=== PATIENT | female | born 1980 | race American Indian/Alaskan Native ===

== ENCOUNTER 2020-01-05 21:33 | Emergency (ER) | payer MEDICAID ==
--- NOTE | 2020-01-05 22:30 | Emergency Department Report ---
HPI - General Chief Complaint: Overdose Time Seen by Provider: 01/05/20 21:35 - HPI HPI: Room 2 The patient is a 39-year-old female present with a chief complaint of unresponsiveness. Per EMS family noted the patient was unresponsive she was found slumped over in her chair. EMS placed a nasal trumpet and administered Narcan. Just prior to arrival the patient began to awaken and answer questions. Family at bedside provides further history stating that the patient took some Xanax that she had bought off the street this morning at 07: 00. Patient then went to her physician's office for routine appointment and when family was driving her back home she appeared lethargic and was slumped over in the backseat with decreased responsiveness. Upon arriving home EMS was called and the patient improved and refused transport. The patient then acknowledges she took some more Xanax and Percocet at approximately 15: 00 this afternoon. The patient's daughter felt the patient unresponsive slumped over in her chair and EMS was called and eventually transported the patient to the ED ED Past Medical Hx - Past Medical History Previous Medical History?: Yes Hx GERD: Yes Hx Psychiatric Treatment: Yes (anxiety) Additional medical history: HYPOTHYROID, Abuse of hydrocodone - Surgical History Past Surgical History?: Yes Hx Cholecystectomy: Yes Additional Surgical History: 2002 2004 - Family History Family history: no significant - Social History Smoking Status: Current Every Day Smoker - Medications Home Medications: Home Medications Medication Instructions Recorded Confirmed Last Taken Type Levothyroxine [Synthroid] 100 mcg PO QDAY 11/16/14 06/27/15 11/26/14 07:00 History 100 mcg Cyclobenzaprine [Flexeril 10 MG 10 mg PO TID PRN #30 tablet 06/28/15 Unknown Rx TAB] HYDROcodone/APAP 5-325 [[place] 1 each PO Q6HR PRN #20 tablet 06/28/15 Unknown Rx 5-325 mg TAB] Ibuprofen [Motrin 600 MG tab] 600 mg PO Q8H PRN #50 tablet 06/28/15 Unknown Rx ED Review of Systems ROS: Stated complaint: CARDIAC ARREST Other details as noted in HPI Constitutional: no symptoms reported Eyes: denies: eye pain ENT: denies: throat pain Respiratory: no symptoms reported Cardiovascular: denies: chest pain Endocrine: no symptoms reported Gastrointestinal: denies: abdominal pain Genitourinary: denies: dysuria Musculoskeletal: denies: back pain Neurological: denies: headache Physical Exam - Physical Exam Vital Signs: Vital Signs 01/05/20 01/05/20 01/05/20 21:45 21:51 22:12 Temperature 97.5 F L Pulse Rate 99 H Respiratory 15 20 Rate Blood Pressure 130/72 O2 Sat by Pulse 98 Oximetry Physical Exam: GEN: WD WN obese female lying on stretcher in NAD. Patient keeps screaming out "I'm cold!" HEENT: NCAT, EOMI NECK: trachea midline PULM: CTA bilat. No resp distress noted CV: rrr no m/r/g ABD: s/nt/nd SKIN: no diaphoresis NEURO: GCS 15 MUSCULOSKELETAL: No evidence of acute injury ED Course Vital Signs 01/05/20 01/05/20 01/05/20 21:45 21:51 22:12 Temperature 97.5 F L Pulse Rate 99 H Respiratory 15 20 Rate Blood Pressure 130/72 O2 Sat by Pulse 98 Oximetry - Reevaluation(s) Reevaluation #1: 01/06/20 00:08 Patient remains alert and oriented and asymptomatic. Patient and family updated on work-up ED Medical Decision Making - Lab Data Result diagrams: 01/05/20 23:07 01/05/20 23:07 Laboratory Tests 01/05/20 01/05/20 01/05/20 22:12 23:07 23:07 WBC 9.5 RBC 4.44 Hgb 10.5 Hct 35.5 MCV 80 MCH 24 L MCHC 30 RDW 19.7 H Plt Count 230 Lymph % (Auto) 12.3 L [place] % (Auto) 6.6 Eos % (Auto) 0.4 Baso % (Auto) 0.4 Lymph # 1.2 [place] # 0.6 Eos # 0.0 Baso # 0.0 Seg Neutrophils % 80.3 H Seg Neutrophils # 7.7 PT 14.0 INR 1.07 APTT 25.8 Sodium Potassium Chloride Carbon Dioxide Anion Gap BUN Creatinine Estimated GFR BUN/Creatinine Ratio Glucose Calcium Total Bilirubin AST ALT Alkaline Phosphatase Ammonia Total Creatine Kinase CK-MB (CK-2) CK-MB (CK-2) Rel Index Troponin T Total Protein Albumin Albumin/Globulin Ratio TSH Free T4 HCG, Qual Urine Opiates Screen Presumptive negative Urine Methadone Screen Presumptive negative Ur Barbiturates Screen Presumptive negative Ur Phencyclidine Scrn Presumptive negative Ur Amphetamines Screen Presumptive negative U Benzodiazepines Scrn Presumptive positive Urine Cocaine Screen Presumptive negative U Marijuana (THC) Screen Presumptive negative Drugs of Abuse Note Disclamer Plasma/Serum Alcohol 01/05/20 01/05/20 01/05/20 23:07 23:07 23:07 WBC RBC Hgb Hct MCV MCH MCHC RDW Plt Count Lymph % (Auto) [place] % (Auto) Eos % (Auto) Baso % (Auto) Lymph # [place] # Eos # Baso # Seg Neutrophils % Seg Neutrophils # PT INR APTT Sodium 139 Potassium 4.0 Chloride 99.4 Carbon Dioxide 28 Anion Gap 16 BUN 8 Creatinine 0.9 Estimated GFR > 60 BUN/Creatinine Ratio 9 Glucose 87 Calcium 8.6 Total Bilirubin 0.20 AST 19 ALT 7 Alkaline Phosphatase 86 Ammonia 25.0 Total Creatine Kinase 172 H CK-MB (CK-2) 2.7 CK-MB (CK-2) Rel Index 1.5 Troponin T < 0.010 Total Protein 8.1 Albumin 3.8 L Albumin/Globulin Ratio 0.9 TSH Free T4 HCG, Qual Urine Opiates Screen Urine Methadone Screen Ur Barbiturates Screen Ur Phencyclidine Scrn Ur Amphetamines Screen U Benzodiazepines Scrn Urine Cocaine Screen U Marijuana (THC) Screen Drugs of Abuse Note Plasma/Serum Alcohol < 0.01 01/05/20 01/05/20 23:07 23:07 WBC RBC Hgb Hct MCV MCH MCHC RDW Plt Count Lymph % (Auto) [place] % (Auto) Eos % (Auto) Baso % (Auto) Lymph # [place] # Eos # Baso # Seg Neutrophils % Seg Neutrophils # PT INR APTT Sodium Potassium Chloride Carbon Dioxide Anion Gap BUN Creatinine Estimated GFR BUN/Creatinine Ratio Glucose Calcium Total Bilirubin AST ALT Alkaline Phosphatase Ammonia Total Creatine Kinase CK-MB (CK-2) CK-MB (CK-2) Rel Index Troponin T Total Protein Albumin Albumin/Globulin Ratio TSH 1.830 Free T4 1.31 HCG, Qual Negative Urine Opiates Screen Urine Methadone Screen Ur Barbiturates Screen Ur Phencyclidine Scrn Ur Amphetamines Screen U Benzodiazepines Scrn Urine Cocaine Screen U Marijuana (THC) Screen Drugs of Abuse Note Plasma/Serum Alcohol - EKG Data -: EKG Interpreted by [place] EKG shows normal: sinus rhythm Rate: normal - EKG Data When compared to previous EKG there are: previous EKG unavailable Interpretation: other (No ischemic changes seen) - Radiology Data Radiology results: report reviewed (CT head), image reviewed (CT head) Findings [facility] [address] [place] [id number] Cat Scan Report Signed Patient: MIREYA FIELD MR# : [id number] : 1980 Acct:[id number] Age/Sex: 39 / F ADM Date: 01/05/20 Loc: ED Attending Dr: Ordering Physician: LIZZY NORIEGA MD Date of Service: 01/05/20 Procedure(s): CT head/brain wo con Accession Number(s): [id number] cc: LIZZY NORIEGA MD CT HEAD WITHOUT CONTRAST INDICATION: Episode of unresponsiveness TECHNIQUE: Axial slices were obtained through the head. Coronal and sagittal reformatted images were obtained. COMPARISON: None available. FINDINGS: There is no in tracranial hemorrhage or extra-axial fluid collection. Ventricles, basilar cisterns, and sulci appear within normal limits for age. There is no mass lesion or midline shift. No acute territorial infarct is identified. Bone windows demonstrate no acute osseous abnormality. Paranasal sinuses and mastoid air cells appear clear. TECHNIQUE: All CT scans at this facility use dose modulation, iterative reconstruction, automated exposure control, weight based dosing, when appropriate, to reduce radiation dose to as low as reasonably achievable. IMPRESSION: 1. No acute intracranial abnormality. Signer Name: Andrea Shaw MD Signed: 01/05/2020 11:10 PM Workstation Name: [id number] Transcribed By: SS Dictated By: Andrea Shaw MD Electronically Authenticated By: Andrea Shaw MD Signed Date/Time: 01/05/202309 DD/ 07 TD/TT: - Differential Diagnosis Opiate overdose, benzodiazepine overdose, ICH, symptomatic anemia, electrol Critical care attestation.: If time is entered above; I have spent that time in minutes in the direct care of this critically ill patient, excluding procedure time. ED Disposition Clinical Impression: Benzodiazepine overdose Disposition: DC-01 TO HOME OR SELFCARE Is pt being admited?: No Does the pt Need Aspirin: No Condition: Stable Instructions: Benzodiazepine Abuse (ED), Narcotic Abuse (ED) Referrals: [facility] [Outside] - [facility] (Should you desire assistance with your opiate and benzodiazepine overuse please follow-up with [facility].) Time of Disposition: 00:09
[2020-01-05 22:31] LABS: Amphetamine Screen,Urine PRESUMPTIVE NEGATIVE; Cannabinoid Screen,Urine PRESUMPTIVE NEGATIVE; Cocaine Screen,Urine PRESUMPTIVE NEGATIVE; Methadone Screen,Urine PRESUMPTIVE NEGATIVE; Opiate Screen,Urine PRESUMPTIVE NEGATIVE
[2020-01-05 22:50] LABS: Benzodiazepines Screen,Urine PRESUMPTIVE POSITIVE
[2020-01-05 23:11] VITALS: BP 108/51
--- NOTE | 2020-01-05 23:15 | Cat Scan Report ---
CT HEAD WITHOUT CONTRAST INDICATION: Episode of unresponsiveness TECHNIQUE: Axial slices were obtained through the head. Coronal and sagittal reformatted images were obtained. COMPARISON: None available. FINDINGS: There is no intracranial hemorrhage or extra-axial fluid collection. Ventricles, basilar cisterns, an d sulci appear within normal limits for age. There is no mass lesion or midline shift. No acute radha torial infarct is identified. Bone windows demonstrate no acute osseous abnormality. Paranasal sinuses and mastoid air cells appear clear. TECHNIQUE: All CT scans at this facility use dose modulation, iterative reconstruction, automated ex posure control, weight based dosing, when appropriate, to reduce radiation dose to as low as reasonab ly achievable. IMPRESSION: 1. No acute intracranial abnormality. Signer Name: Andrea Shaw MD Signed: 01/05/2020 11:10 PM Workstation Name: [id number]
[2020-01-05 23:22] LABS: Basophils % (Auto) 0.4 % (0.0-1.8); Eosinophils % (Auto) 0.4 % (0.0-4.3); Lymphocytes # (Auto) 1.2 K/mm3 (1.2-5.4); Lymphocytes % (Auto) 12.3 % (13.4-35.0); Mean Corpuscular HGB Conc 30 % (30-34); Mean Corpuscular Volume 80 fl (79-97); Monocytes # (Auto) 0.6 K/mm3 (0.0-0.8); Monocytes % (Auto) 6.6 % (0.0-7.3); Platelet Count 230 K/mm3 (140-440); Red Blood Count 4.44 M/mm3 (3.65-5.03); Red Cell Distribution Width 19.7 % (13.2-15.2)
[2020-01-05 23:29] LABS: Hematocrit 35.5 % (30.3-42.9); Hemoglobin 10.5 gm/dl (10.1-14.3)
[2020-01-05 23:33] LABS: INR 1.07 (0.87-1.13)
[2020-01-05 23:34] LABS: Partial Thromboplastin Time 25.8 Sec. (24.2-36.6)
[2020-01-05 23:36] LABS: Creatine Kinase MB 2.7 ng/mL (0.0-4.0)
[2020-01-05 23:38] LABS: Alanine Aminotransferase 7 units/L (7-56); Albumin 3.8 g/dL (3.9-5); BUN/Creatinine Ratio 9; Blood Urea Nitrogen 8 mg/dL (7-17); Calcium 8.6 mg/dL (8.4-10.2); Hemolysis Index 25
[2020-01-05 23:55] LABS: Free T4 (Free Thyroxine) 1.31 ng/dL (0.76-1.46)
== END 2020-01-06 00:30 | disposition home or self-care (01) ==
LOC: ED 21:33
DX: T42.4X1A Poisoning by benzodiazepines, accidental (unintentional), initial encounter (principal); Y92.89 Other specified places as the place of occurrence of the external cause; K21.9 Gastro-esophageal reflux disease without esophagitis; F41.9 Anxiety disorder, unspecified; E03.9 Hypothyroidism, unspecified; F17.200 Nicotine dependence, unspecified, uncomplicated; Z90.49 Acquired absence of other specified parts of digestive tract; Z98.890 Other specified postprocedural states; Z79.1 Long term (current) use of non-steroidal anti-inflammatories (NSAID); Z79.899 Other long term (current) drug therapy
CPT/HCPCS: 36415; 70450; 80053; 80307; 80320; 82140; 82550; 82553; 84439; 84443; 84484; 84703; 85025; 85610; 85730; 93005; 93010; G0480

== ENCOUNTER 2020-01-06 14:59 | Inpatient (IN) | payer MEDICAID ==
--- NOTE | 2020-01-06 18:23 | XRay Report ---
CHEST 1 VIEW INDICATION / CLINICAL INFORMATION: resp depression. COMPARISON: 09/30/2018 FINDINGS: SUPPORT DEVICES: None. HEART / MEDIASTINUM: Cardiac silhouette size remains mildly enlarged. LUNGS / PLEURA: There is mild interstitial pulmonary edema. No significant pleural effusion. No pneum othorax. ADDITIONAL FINDINGS: No significant additional findings. IMPRESSION: 1. Mild interstitial pulmonary edema. Signer Name: Corrina Wilhelm MD Signed: 01/06/2020 6:18 PM Workstation Name: [id number]
[2020-01-06 18:30] LABS: Calcium 8.4 mg/dL (8.4-10.2)
--- NOTE | 2020-01-06 18:46 | Cat Scan Report ---
CT head/brain wo con INDICATION: Altered mental status. TECHNIQUE: Routine CT head without contrast. All CT scans at this location are performed using CT dos e reduction for ALARA by means of automated exposure control. COMPARISON: None. FINDINGS: BRAIN / INTRACRANIAL CONTENTS: No acute hemorrhage, mass effect, midline shift, or hydrocephalus. No appreciable acute large territorial or lacunar infarct. No chronic infarct or focal atrophy. Normal b rain volume and ventricular/sulcal size for age. ORBITS: No significant abnormality of visualized orbits. SINUSES / MASTOIDS: No significant abnormality of visualized sinuses and mastoid air cells. ADDITIONAL FINDINGS: None. IMPRESSION: 1. No acute intracranial abnormality. Signer Name: Jasmeet Hein MD Signed: 01/06/2020 6:42 PM Workstation Name: [id number]
[2020-01-06] MEDS ORDERED: SODIUM CHLORIDE 0.9% 1000 ML 2,000 ML IV ONE (19:13)
[2020-01-06] MEDS ORDERED: SODIUM BICARB 8.4% 50 MEQ/50 ML SYRINGE IV ONE (19:13)
[2020-01-06] MEDS ORDERED: SODIUM CHLORIDE 0.9% 1000 ML 1,000 ML IV ONE ×2 (19:13→19:22)
--- NOTE | 2020-01-06 19:19 | Emergency Department Report ---
ED General Adult HPI - General Chief complaint: Overdose Stated complaint: POSS OD/UNRESPONSIVE Time Seen by Provider: 01/06/20 17:19 Source: family, EMS ( EMS documentation not available at time of chart dictation ), RN notes reviewed, old records reviewed Mode of arrival: Stretcher Limitations: Altered Mental Status - History of Present Illness Initial comments: Patient is a 39-year-old female. I have evaluated this patient in the past. Patient was seen in this department last night for presumed narcotic overdose. She had a thorough work-up and evaluation, and was subsequently discharged. Patient is currently sleeping. She is arousable but quite sleepy. History obtained from review of old medical records and discussion with family. As per discussion with her grandmother, the patient had been having muscle aches and body aches, and apparently had took 1 of her Percocets for pain. As per family, this is prescribed by her outpatient physician in [place]. Shortly thereafter, the patient became sleepy. As per triage documentation, patient was found to be unconscious, and was given Narcan, with a GCS of 15. As per her grandmother/family member, there is no trauma. The patient takes chronic narcotics for pain control as per her family, there is also on chronic benzodiazepines. The patient is sleepy but arousable at this time. As per family, the patient snores quite a bit at night, and does not have a formal diagnosis of sleep apnea or CPAP machine that they are aware of. Primary complaints in the emergency room is sleepiness, and low oxygen saturation. Patient is sleepy, and not able to describe the qualitative nature of her symptoms, exacerbating or relieving factors, radiation, or further nature of her symptoms. -: This morning Radiation: other Quality: other Consistency: other Improves with: other Worsens with: other Associated Symptoms: other - Related Data Home Medications Medication Instructions Recorded Confirmed Last Taken Levothyroxine [Synthroid] 100 mcg PO QDAY 11/16/14 06/27/15 11/26/14 07:00 100 mcg Allergies Allergy/AdvReac Type Severity Reaction Status Date / Time No Known Allergies Allergy Verified 11/16/14 17:20 ED Review of Systems ROS: Stated complaint: POSS OD/UNRESPONSIVE Other details as noted in HPI Comment: Unobtainable due to pts medical conditions (Patient sleepy. History of present illness and review of systems obtained from family) Musculoskeletal: myalgia Neurological: weakness, confusion ED Past Medical Hx - Past Medical History Previous Medical History?: Yes Hx Hypertension: No Hx GERD: Yes Hx Psychiatric Treatment: Yes (anxiety) Additional medical history: HYPOTHYROID, Abuse of hydrocodone - Surgical History Past Surgical History?: Yes Hx Cholecystectomy: Yes Additional Surgical History: 2002 2004 - Social History Smoking Status: Unknown if ever smoked Substance Use Type: Other - Medications Home Medications: Home Medications Medication Instructions Recorded Confirmed Last Taken Type Levothyroxine [Synthroid] 100 mcg PO QDAY 11/16/14 06/27/15 11/26/14 07:00 History 100 mcg ED Physical Exam - General Limitations: Other (Patient sleeping) General appearance: lethargic, obese - Head Head exam: Present: atraumatic, normocephalic - Eye Eye exam: Present: normal appearance - ENT ENT exam: Present: normal exam, mucous membranes moist, normal external ear exam - Neck Neck exam: Present: normal inspection. Absent: tenderness, meningismus - Respiratory Respiratory exam: Present: decreased breath sounds. Absent: respiratory distress, rhonchi, stridor - Cardiovascular Cardiovascular Exam: Present: regular rate, normal rhythm, normal heart sounds. Absent: systolic murmur, diastolic murmur, rubs, gallop - GI/Abdominal GI/Abdominal exam: Present: soft. Absent: distended, tenderness, guarding, rebound, rigid, pulsatile mass - Extremities Exam Extremities exam: Present: normal inspection, full ROM, other (2+ pulses noted in the bilateral upper and lower extremities. There is no palpable cord. negative Homans sign. Muscular compartments are soft. The pelvis is stable.). Absent: pedal edema, calf tenderness - Back Exam Back exam: Present: normal inspection. Absent: tenderness, CVA tenderness (R), CVA tenderness (L), paraspinal tenderness, vertebral tenderness - Neurological Exam Neurological exam: Present: other (Patient sleepy but arousable. She is asking for a pillow. She is moving 4 extremities. Detailed neurologic examination is not possible secondary to somnolence.) - Skin Skin exam: Present: warm, dry, intact, normal color. Absent: rash ED Course Vital Signs 01/06/20 01/06/20 16:46 19:45 Temperature 98.2 F Pulse Rate 96 H Respiratory 20 Rate Blood Pressure 110/66 O2 Sat by Pulse 97 96 Oximetry - Reevaluation(s) Reevaluation #1: 01/06/20 19:55 Arterial blood gas suggest hypoxemic respiratory failure, does not demonstrate significant hypercarbia. Patient is awake and arousable. High flow nasal cannula therapy ordered. We are awaiting callback from hospital physician to arrange admission. Reevaluation #2: 01/06/20 20:42 To 8898% on high flow therapy. Hospital physician, Dr. Chelsea Gregorio to admit ED Medical Decision Making - Lab Data Result diagrams: 01/06/20 17:55 Vital Signs 01/06/20 16:46 Temperature 98.2 F Pulse Rate 96 H Respiratory 20 Rate Blood Pressure 110/66 O2 Sat by Pulse 97 Oximetry Lab Results 01/06/20 01/06/20 01/06/20 Range/Units 17:54 17:54 17:55 Sodium 133 L (137-145) mmol/L Potassium 4.9 D (3.6-5.0) mmol/L Chloride 94.5 L (98-107) mmol/L Carbon Dioxide 25 (22-30) mmol/L Anion Gap 18 mmol/L BUN 13 (7-17) mg/dL Creatinine 1.5 H D (0.7-1.2) mg/dL Estimated GFR 47 ml/min BUN/Creatinine Ratio 9 % Glucose 91 (65-100) mg/dL Calcium 8.4 (8.4-10.2) mg/dL Magnesium 2.10 (1.7-2.3) mg/dL Total Creatine Kinase 17143 H (30-135) units/L Salicylates < 0.3 L (2.8-20.0) mg/dL Acetaminophen < 5.0 L (10.0-30.0) ug/mL Plasma/Serum Alcohol (0-0.07) % 01/06/20 Range/Units 17:55 Sodium (137-145) mmol/L Potassium (3.6-5.0) mmol/L Chloride (98-107) mmol/L Carbon Dioxide (22-30) mmol/L Anion Gap mmol/L BUN (7-17) mg/dL Creatinine (0.7-1.2) mg/dL Estimated GFR ml/min BUN/Creatinine Ratio % Glucose (65-100) mg/dL Calcium (8.4-10.2) mg/dL Magnesium (1.7-2.3) mg/dL Total Creatine Kinase (30-135) units/L Salicylates (2.8-20.0) mg/dL Acetaminophen (10.0-30.0) ug/mL Plasma/Serum Alcohol < 0.01 (0-0.07) % - EKG Data -: EKG Interpreted by Me EKG shows normal: sinus rhythm Rate: normal - EKG Data 01/06/20 19:27 Differential diagnosis, including not limited to EKG shows sinus rhythm, 96 bpm, normal axis, QTC 491 ms, there is poor R wave progression, rate 96 bpm, QTC prolonged. The EKG is abnormal. The EKG is not consistent with ST elevation myocardial infarction - Radiology Data Radiology results: report reviewed, image reviewed Noncontrast CT scan of the brain is negative for acute disease. X-ray of the chest suggest pulmonary vascular congestion. - Medical Decision Making Differential diagnosis, including but not limited to: Narcotic dependence, narcotic intoxication, obstructive sleep apnea, obesity hypoventilation syndro me, pulmonary hypertension,, hypercapnia, myositis Assessment and plan: 39-year-old female with sleepiness, after taking Percocet, as reported by family, also with history of muscle aches. I have evaluated this patient in the past, and she was seen yesterday for similar symptoms. She is sleepy but arousable. She is protecting her airway at this time. CK has gone up by multiple orders of magnitude, and is now almost 12,000; yesterday it was 172. Patient also found to have renal insufficiency, noncontrast CT scan of the brain is negative, x-ray of the chest suggest pulmonary vascular congestion. Suspect multiple conditions present, including acute renal insufficiency, rhabdomyolysis, probable right-sided heart failure, pulmonary vascular congestion/pulmonary hypertension. Discussed with nephrology, Dr. Norman, recommends normal saline 250 cc, followed by 75 cc/h, indicates his group will follow in consultation. Hospital physician is paged to arrange admission. Sodium bicarbonate ordered. Arterial blood gas ordered. I also had extensive discussion with family, discussing need to taper patient off of narcotic therapy and sedating/habit-forming medications. This can be done downstream when she is medically optimized. Critical Care Time: Yes Critical care time in (mins) excluding proc time.: 60 Critical care attestation.: If time is entered above; I have spent that time in minutes in the direct care of this critically ill patient, excluding procedure time. ED Disposition Clinical Impression: JANNETTE (acute kidney injury), Rhabdomyolysis, Pulmonary edema, Acute hypoxemic respiratory failure Disposition: OP ADMIT IP TO THIS HOSP Is pt being admited?: Yes Condition: Fair Instructions: Pulmonary Edema (ED) Referrals: PRIMARY CARE, [Primary Care Provider] - 3-5 Days
[2020-01-06] MEDS ORDERED: SODIUM CHLORIDE 0.9% 250ML 250 ML IV ONE (19:22)
[2020-01-06 19:47] LABS: ABG Base Excess 0.9 mmol/L (-2.0-3.0); ABG HCO3 27.5 mmol/L (20.0-26.0); ABG Methemoglobin 0.5 % (0.0-1.5); ABG Oxygen Saturation 89.6 % (95.0-99.0); ABG PCO2 54.1 mm Hg; ABG PH 7.325 pH Units (7.350-7.450); ABG PO2 61.9 mm Hg (80.0-90.0)
[2020-01-06] MEDS ORDERED: SODIUM CHLORIDE 0.9% 1000 ML 1,000 ML ONE (21:15)
[2020-01-06] MEDS ORDERED: SODIUM BICARBONATE 150 MEQ in DEXTROSE 5% IN WATER 1,000 ML IV ONE (22:14)
[2020-01-07 01:22] LABS: Creatine Kinase MB 84.4 ng/mL (0.0-4.0)
[2020-01-07 07:18] LABS: Alanine Aminotransferase 49 units/L (7-56); Albumin 3.3 g/dL (3.9-5); BUN/Creatinine Ratio 21; Blood Urea Nitrogen 17 mg/dL (7-17); Calcium 8.4 mg/dL (8.4-10.2); Hemolysis Index 5
[2020-01-07 07:21] LABS: Creatine Kinase MB 71.6 ng/mL (0.0-4.0)
--- NOTE | 2020-01-07 07:38 | History and Physical Report ---
CHIEF COMPLAINT: Change in mental status. HISTORY OF PRESENT ILLNESS: The patient is a 39-year-old female who was seen the night prior to presentation during which she was suspected to have overdosed on narcotics and was evaluated and sent home and then started to complain of pain and had another dose of Percocet and had change in mental status and then was brought in for evaluation. According to the family, the patient had prescription for narcotics by the outpatient physician in [place]. The patient was noted to be feeling so sleepy after taking one dose of Percocet. There was no history of nausea and vomiting. There was also no history of chest pain or shortness of breath, but the patient had this change in mental status that made the family bring her to the Emergency Room. PAST MEDICAL HISTORY: Pertinent for gastroesophageal reflux disease, anxiety disorder, hypothyroidism, narcotic abuse, notably hydrocodone. PAST SURGICAL HISTORY: Pertinent for cholecystectomy and . FAMILY HISTORY: There is no family history of thyroid disease or cancer. SOCIAL HISTORY: The patient abuses hydrocodone, does not smoke and does not drink alcohol. MEDICATIONS: The patient is on Synthroid 100 mcg by mouth daily. ALLERGIES: There are no known drug allergies. REVIEW OF SYSTEMS: CONSTITUTIONAL: There is no fever, no chills, no diaphoresis. HEENT: There is no headache or sore throat. CARDIOVASCULAR SYSTEM: There is no chest pain or orthopnea. RESPIRATORY SYSTEM: There is no shortness of breath or cough. GASTROINTESTINAL SYSTEM: There is no nausea, no vomiting, no abdominal pain, diarrhea or constipation. NEUROLOGICAL SYSTEM: There is lethargy and change in mental status, but no numbness. MUSCULOSKELETAL SYSTEM: There is no joint pain or swelling. DERMATOLOGICAL SYSTEM: There is no skin rash or itching. GENITOURINARY SYSTEM: There is no dysuria, hematuria, or flank pain. Rest of system review is normal. PHYSICAL EXAMINATION: GENERAL: At the time of exam the patient was found to be lethargic, easily arousable, but not in acute distress. VITAL SIGNS: Shows temperature of 98.2 degrees Fahrenheit, pulse of 96, respirations 20, blood pressure 110/66, O2 sat of 97% on room air. HEENT: Showed pupils to be equal, round, and reactive to light. NECK: Supple with no JVD or carotid bruit. CARDIOVASCULAR SYSTEM: Showed normal first and second heart sounds with no gallops or murmurs. RESPIRATORY SYSTEM: Showed good air entry on both sides of the lungs with no abnormal breath sounds. GASTROINTESTINAL SYSTEM: Showed abdomen to be full, soft, nontender with no organomegaly or rigidity. NEUROLOGIC: Shows no focal deficit, but shows the patient that is lethargic and easily arousable. MUSCULOSKELETAL SYSTEM: Showed no joint swelling or tenderness. DERMATOLOGICAL SYSTEM: Showed no skin rash. GENITOURINARY SYSTEM: Showed no costovertebral angle tenderness. PERTINENT LABORATORY STUDIES: The patient had the following lab test done. The patient's ABG showed low pH of 7.32 with normal pCO2 and low pO2 of 61.9 with low O2 sat of 89.6% and this was done on FiO2 of 28. The patient's chemistry showed low sodium level of 133 with low chloride level of 94.5 and elevated creatinine level of 1.5. The patient's total CPK was high with a value of 11,755 and brain natriuretic peptide level is high with a value of 742.6. Toxicology screen came back unremarkable. IMAGING STUDIES: The patient has CT of the head without contrast done that shows no acute intracranial lesion and chest x-ray showed mild interstitial pulmonary edema. DIAGNOSES: 1. Change in mental status. 2. Narcotic overdose. 3. Rhabdomyolysis. 4. Pulmonary edema. 5. Acute kidney injury. PLAN OF CARE: 1. The patient will be admitted to [facility] as inpatient. 2. The patient will have serial cardiac enzyme involving troponin, total CK, and CK-MB check q. 6 hours x 2 more levels. 3. The patient will continue Nephrology consult with Dr. Norman. 4. The patient will be on IV bicarbonate drip running at 42 mL an hour. 5. The patient will be on oxygen by nasal cannula, which will be titrated to keep O2 sat above 94%. 6. The patient will have echocardiogram done this morning with Cardiology on-call to read. 7. The patient DVT prophylaxis will be through heparin 5000 units subcutaneous q. 12 hours. JOB# [id number] OCN/NTS
--- NOTE | 2020-01-07 09:55 | Event Note ---
Date: 01/07/20 Patient with drug overdose, JANNETTE, rhabdomyolysis. I have seen and examined her.
[2020-01-07] MEDS: HEPARIN 5,000 UNIT/1 ML VIAL SUB-Q SCH ×2 (10:00→21:43)
[2020-01-07 10:23] LABS: Creatinine,Urine 50.6 mg/dL (0.1-20.0)
[2020-01-07 10:28] LABS: Amphetamine Screen,Urine PRESUMPTIVE NEGATIVE; Cannabinoid Screen,Urine PRESUMPTIVE NEGATIVE; Cocaine Screen,Urine PRESUMPTIVE NEGATIVE; Methadone Screen,Urine PRESUMPTIVE NEGATIVE; Opiate Screen,Urine PRESUMPTIVE NEGATIVE
[2020-01-07 10:41] LABS: Benzodiazepines Screen,Urine PRESUMPTIVE POSITIVE
[2020-01-07 10:44] LABS: Bacteria,Urine 2+ /HPF (Negative); Bilirubin,Urine NEG (Negative); Blood,Urine LG (Negative); Color,Urine Yellow (Yellow); Protein,Urine <15 mg/dL mg/dL (Negative); Urobilinogen,Urine < 2.0 mg/dL (<2.0)
--- NOTE | 2020-01-07 11:56 | Consultation ---
History of Present Illness - Reason for Consult Consult date: 01/07/20 acute renal failure - History of Present Illness This is a 39 year old female patient with pmh significant for hypothyroidism and substance abuse/dependence to prescription medications including percocet. Patient was seen in the ED on 01/05 for suspected overdose after being found unresponsive. Patient family states she bought xanax "off the street" that morning and they later found her slumped over in a chair. Patient admitted to taking additional xanax and percocet later that afternoon. After receiving Narcan from EMS, patient became more responsive by the time she was evaluated in the ED. After examination and work-up, she was discharged from the ED. She returned again to the ED on 01/06 after being found unconscious by family and was again given Narcan. Patient takes narcotics for chronic pain which is reportedly prescribed by her physician in [place]. Family reports patient also has dependence on benzodiazepines. ED notes state patient was quite lethargic but at time of consultation she is alert and quite irritated with multiple family members at bedside. She does not seem interested in the plan of care being discussed and is only requesting food. Labs on admission significant for serum sodium 133, creatinine 1.5, TCK 89944, and BNP 742.6. [place] [address] and albumin 3.3. Benzodiazepine screening was positive. ECHO revealed EF of 60-65%. Head CT showed no acute intracranial abnormality. Chest xray revealed mild interstitial edema. Nephrology was initial ly consulted for further evaluation and treatment of hyponatremia and acute kidney injury. Past History Past Medical History: hypothyroidism Social history: prescription drug abuse Medications and Allergies Allergies Allergy/AdvReac Type Severity Reaction Status Date / Time No Known Allergies Allergy Verified 11/16/14 17:20 Home Medications Medication Instructions Recorded Confirmed Last Taken Type Levothyroxine [Synthroid] 100 mcg PO QDAY 11/16/14 06/27/15 11/26/14 07:00 History 100 mcg Active Meds: Active Medications Heparin Sodium (Porcine) (Heparin) 5,000 unit SUB-Q Q12HR MAXIMILIANO Sodium Bicarbonate 150 meq/ (Dextrose) 1,150 mls @ 42 mls/hr IV DIRECT ONE Stop: 01/08/20 01:36 Last Admin: 01/07/20 03:37 Dose: 42 mls/hr Documented by: Review of Systems Constitutional: weakness, chronic pain, no weight loss, no weight gain, no fever, no chills Ears, nose, mouth and throat: no nasal discharge, no epistaxis Cardiovascular: no chest pain, no shortness of breath Respiratory: no cough, no shortness of breath Gastrointestinal: no abdominal pain, no nausea, no vomiting, no diarrhea Musculoskeletal: muscle weakness, muscle cramps Exam - Vital Signs Vital signs: Vital Signs Temp Pulse Resp BP Pulse Ox 98.2 F 96 H 20 110/66 97 01/06/20 16:46 01/06/20 16:46 01/06/20 16:46 01/06/20 16:46 01/06/20 16:46 - General Appearance General appearance: well-developed, appears stated age, obese EENT: ATNC, PERRL, mucous membranes moist Neck: Present: neck supple, trachea midline Respiratory: Clear to Ascultation, Decreased Breath Sounds (bilateral bases) Heart: regular, normal heart rate, S1S2, no murmurs Gastrointestinal: Present: normal, normoactive bowel sounds. Absent: te nderness, distended, masses, organomegaly Integumentary: no rash, warm and dry Neurologic: no focal deficit, alert and oriented x3 Musculoskeletal: Present: other (FROM all extremities) Psychiatric: other (patient is irritated at time of exam and seems uninterested in plan of care) Results - Lab Results 01/07/20 06:02 Most recent lab results ABG pH 7.325 pH Units (7.350-7.450) L 01/06/20 19:35 ABG pCO2 54.1 mm Hg 01/06/20 19:35 ABG pO2 61.9 mm Hg (80.0-90.0) L 01/06/20 19:35 ABG HCO3 27.5 mmol/L (20.0-26.0) H 01/06/20 19:35 ABG O2 Saturation 89.6 % (95.0-99.0) L 01/06/20 19:35 Calcium 8.4 mg/dL (8.4-10.2) 01/07/20 06:02 Magnesium 2.10 mg/dL (1.7-2.3) 01/06/20 17:55 Urine Creatinine 50.6 mg/dL (0.1-20.0) H 01/07/20 09:23 Urine Sodium 29 mmol/L 01/07/20 09:23 Assessment and Plan 1. Acute kidney injury: Vasomotor JANNETTE in setting of rhabdomyolysis. Creatinine on admission was 1.5 but improved overnight to 0.8. No renal US necessary at this time. Renal function is improving. Continue to monitor renal function. Avoid nephrotoxic agents. Meds dosage based on GFR. 2. FEN: Hyponatremia: improved to 141, monitor. Monitor lytes. 3. R[place]dom[place]olysis: [place] [address]. 4. Prescription medication abuse: Multiple ER visits related to unconsciousness after abuse of narcotic or benzos. Positive for benzos on toxicology screening. Patient does not appear to be open to counseling at time of consult as she is quite irritated. 5. Hypothyroidism: On Synthroid.
[2020-01-08 05:08] LABS: BUN/Creatinine Ratio 13; Blood Urea Nitrogen 9 mg/dL (7-17); Calcium 8.2 mg/dL (8.4-10.2); Hemolysis Index 0
--- NOTE | 2020-01-08 09:25 | Progress Note ---
Assessment and Plan Assessment and plan: Drug overdose. patient states she took Percocet of family member and 4 pills Xanax 0.25mg She denies being suicidal Consult Psych Rhabdomyolysis ont ivf Nephrology following Acute metabolic encephalopathy Improved JANNETTE due to vasomotor nephropathy Now resolved Cont iv fluids Hypothyroidism Stable to transfer to Medical floor. History Interval history: Patient admitted for drug overdose Feels better Hospitalist Physical - Physical exam Narrative exam: GEN: Not in acute distress, lying in bed,obese HEENT: Normocephalic, atraumatic, Neck: supple, No JVD Lungs: Clear to auscultation ,no wheeze, heart;S1 and S2 reg, no murmurs, rubs or gallop Abd:soft, non tender , non distended, normal bowel sounds Ext: No edema, no clubbing, no cyanosis Neuro: Awake,alert, oriented X 3, no focal neurological signs - Constitutional Vitals: Temp Pulse Resp BP Pulse Ox 97.2 F L 82 17 109/69 99 01/08/20 04:00 01/08/20 06:30 01/08/20 06:30 01/08/20 06:30 01/08/20 09:24 Results - Labs CBC & Chem 7: 01/08/20 04:12 Labs: Laboratory Last Values ABG pH 7.325 pH Units (7.350-7.450) L 01/06/20 19:35 ABG pCO2 54.1 mm Hg 01/06/20 19:35 ABG pO2 61.9 mm Hg (80.0-90.0) L 01/06/20 19:35 ABG HCO3 27.5 mmol/L (20.0-26.0) H 01/06/20 19:35 ABG O2 Saturation 89.6 % (95.0-99.0) L 01/06/20 19:35 ABG O2 Content 12.1 (0.0-44) 01/06/20 19:35 ABG Base Excess 0.9 mmol/L (-2.0-3.0) 01/06/20 19:35 ABG Hemoglobin 10.2 gm/dl (12.0-16.0) L 01/06/20 19:35 ABG Carboxyhemoglobin 5.2 % (0.0-5.0) H 01/06/20 19:35 ABG Methemoglobin 0.5 % (0.0-1.5) 01/06/20 19:35 Oxyhemoglobin 84.4 % (95.0-99.0) L 01/06/20 19:35 FiO2 28 % 01/06/20 19:35 Sodium 140 mmol/L (137-145) 01/08/20 04:12 Potassium 3.8 mmol/L (3.6-5.0) 01/08/20 04:12 Chloride 99.6 mmol/L (98-107) 01/08/20 04:12 Carbon Dioxide 29 mmol/L (22-30) 01/08/20 04:12 Anion Gap 15 mmol/L 01/08/20 04:12 BUN 9 mg/dL (7-17) 01/08/20 04:12 Creatinine 0.7 mg/dL (0.7-1.2) 01/08/20 04:12 Estimated GFR > 60 ml/min 01/08/20 04:12 BUN/Creatinine Ratio 13 % 01/08/20 04:12 Glucose 92 mg/dL (65-100) 01/08/20 04:12 Uric Acid 7.4 mg/dL (3.5-7.6) 01/06/20 19:26 Calcium 8.2 mg/dL (8.4-10.2) L 01/08/20 04:12 Magnesium 2.10 mg/dL (1.7-2.3) 01/06/20 17:55 Total Bilirubin < 0.20 mg/dL (0.1-1.2) 01/07/20 06:02 AST 223 units/L (5-40) H 01/07/20 06:02 ALT 49 units/L (7-56) 01/07/20 06:02 Alkaline Phosphatase 112 units/L (35-129) 01/07/20 06:02 Total Creatine Kinase 7077 units/L (30-135) H 01/08/20 04:12 CK-MB (CK-2) 71.6 ng/mL (0.0-4.0) H 01/07/20 06:02 CK-MB (CK-2) Rel Index 0.4 (0-4) 01/07/20 06:02 Troponin T 0.020 ng/mL (0.00-0.029) 01/07/20 06:02 NT-Pro-B Natriuret Pep 742.6 pg/mL (0-450) H 01/06/20 19:26 Total Protein 7.7 g/dL (6.3-8.2) 01/07/20 06:02 Albumin 3.3 g/dL (3.9-5) L 01/07/20 06:02 Albumin/Globulin Ratio 0.8 % 01/07/20 06:02 TSH 0.748 mlU/mL (0.270-4.200) 01/06/20 19:26 Urine Color Yellow (Yellow) 01/07/20: Urine Turbidity Clear (Clear) 01/07/20: Urine pH 6.0 (5.0-7.0) 01/07/20: Ur Specific [place] 1.005 (1.003-1.030) 01/07/20: Urine Protein <15 mg/dl mg/dL (Negative) 01/07/20: Urine Glucose (UA) Neg mg/dL (Negative) 01/07/20: Urine Ketones Neg mg/dL (Negative) 01/07/20: Urine Blood Lg (Negative) 01/07/20: Urine Nitrite Neg (Negative) 01/07/20: Urine Bilirubin Neg (Negative) 01/07/20: Urine Urobilinogen < 2.0 mg/dL (<2.0) 01/07/20 09:23 Ur Leukocyte Esterase Sm (Negative) 01/07/20: Urine WBC (Auto) 6.0 /HPF (0.0-6.0) 01/07/20: Urine RBC (Auto) 4.0 /HPF (0.0-6.0) 01/07/20: U Epithel Cells (Auto) 2.0 /HPF (0-13.0) 01/07/20: Urine Bacteria (Auto) 2+ /HPF (Negative) 01/07/20: Urine Osmolality 201 Mosm/kg 01/07/20: Urine Creatinine 50.6 mg/dL (0.1-20.0) H 01/07/20: Urine Sodium 29 mmol/L 01/07/20: Salicylates < 0.3 mg/dL (2.8-20.0) L 01/06/20 17:54 Urine Opiates Screen Presumptive negative 01/07/20 09:23 Urine Methadone Screen Presumptive negative 01/07/20 09:23 Acetaminophen < 5.0 ug/mL (10.0-30.0) L 01/06/20 17:54 Ur Barbiturates Screen Presumptive negative 01/07/20 09:23 Ur Phencyclidine Scrn Presumptive negative 01/07/20 09:23 Ur Amphetamines Screen Presumptive negative 01/07/20 09:23 U Benzodiazepines Scrn Presumptive positive 01/07/20 09:23 Urine Cocaine Screen Presumptive negative 01/07/20 09:23 U Marijuana (THC) Screen Presumptive negative 01/07/20 09:23 Drugs of Abuse Note Disclamer 01/07/20 09:23 Plasma/Serum Alcohol < 0.01 % (0-0.07) 01/06/20 17:55 Active Medications - Current Medications Current Medications: Generic Name Dose Route Start Last Admin Trade Name Mattq PRN Reason Stop Dose Admin Heparin Sodium (Porcine) 5,000 unit 01/07/20 10:00 01/07/20 21:43 Heparin SUB-Q 5,000 unit Q12HR MAXIMILIANO Administration
[2020-01-08] MEDS: HEPARIN 5,000 UNIT/1 ML VIAL SUB-Q SCH ×2 (10:57→22:08)
--- NOTE | 2020-01-08 11:19 | Consultation ---
History of Present Illness - Reason for Consult Consult date: 01/08/20 Reason for consult: psychiatric assessment - History of Present Psychiatric Illness Ms. Fernández is a 39-year-old -[place] female, patient was noted in bed awake alert oriented x3, she is able to make her needs known she is dressed appropriately for the occasion, she maintains eye contact. The patient reports that she does have a history of schizoaffective disorder the only medication s he has been taken is Xanax 0.25 3 times daily. The patient reports that she was diagnosed in her early 20s and since she has been having children she has not taken any other medication because she has been focusing on her kids. The patient currently denies suicidal or homicidal ideations the patient denies visual or auditory hallucinations. The patient does report that she goes through depressive moods at times and would like to start on medication. Patient reports that she is very anxious and last taken her Xanax 3 days ago before coming to the hospital. She states, "I just want to pull my skin off I am so anxious". She reports her mood as anxious and report been depressed. The patient report eating well but reports that she does not sleep well. PAST PSYCHIATRIC HISTORY: Diagnoses: Schizoaffective disorder Suicide attempts or Self-harm behavior: Denies Prior psychiatric hospitalizations: Denies Substance Abuse history: Denies Previous psychiatric medications tried: Xanax Outpatient treatment: Denies PAST MEDICAL HISTORY: Family Psychiatric History None reported or documented SOCIAL HISTORY Marital Status: She is single Living Arrangements: Lives with mother Employment Status: Unemployed Access to guns/weapons: Denies Education: 12th grade History of Abuse: Legal History: Denies ROS: Constitutional: Negative for weight loss ENT: Negative for stridor Respiratory: Negative for cough or hemoptysis All other systems reviewed and are negative MENTAL STATUS General Appearance and Behavior: age appropriate, good eye contact, cooperative with questioning and polite Cooperation: Cooperative Psychomotor Behavior: within normal limits Mood: anxious Affect and affective range: Congruent with stated mood Thought Process: Fluent/Logical and Goal-directed Thought Content: Within reality Speech: Normal volume and Regular rate and rhythm Intellectual Functioning Average Suicidal Ideation: Denies SI Homicidal Ideation: Denies HI Impulse Control: intact Insight and Judgment: normal insight and judgment Memory: Normal Attention: Normal Orientation: alert and oriented RECOMMENDATIONS MEDICATIONS: Start Xanax 0.25 twice daily Start Lamictal 25 mg twice daily Start Prozac 10 mg daily Risks, benefits and alternatives of medications discussed with the patient, questions answered and consent obtained from patient. PSYCHOTHERAPY: Supportive psychotherapy provided MEDICAL: Per primary team DELIRIUM PRECAUTIONS: Please re-orient patient frequently, keep lights on during the day, and minimize benzodiazepines and opiates as these medications could worsen patient's confusion. ROOM SERVICE SERVER: DISPOSITION: Per primary team; no indication for acute inpatient psychiatric hospitalization at this time LEGAL STATUS: FOLLOW-UP: Will follow until d/c Medications and Allergies Allergies Allergy/AdvReac Type Severity Reaction Status Date / Time No Known Allergies Allergy Verified 11/16/14 17:20 Home Medications Medication Instructions Recorded Confirmed Last Taken Type Levothyroxine [Synthroid] 100 mcg PO QDAY 11/16/14 06/27/15 11/26/14 07:00 History 100 mcg Active Meds: Active Medications Heparin Sodium (Porcine) (Heparin) 5,000 unit SUB-Q Q12HR MAXIMILIANO Last Admin: 01/08/20 10:57 Dose: 5,000 unit Documented by: Mental Status Exam - Vital signs Last Vital Signs Temp 97.2 F L 01/08/20 04:00 Pulse 80 01/08/20 10:30 Resp 15 01/08/20 10:30 BP 109/69 01/08/20 10:30 Pulse Ox 98 01/08/20 10:30 Results Result Diagrams: 01/08/20 04:12 Abnormal lab results 01/08/20 Range/Units 04:12 Calcium 8.2 L (8.4-10.2) mg/dL Total Creatine Kinase 7077 H (30-135) units/L All other labs normal.
--- NOTE | 2020-01-08 15:21 | Progress Note ---
Assessment and Plan 1. Acute kidney injury: Vasomotor JANNETTE in setting of rhabdomyolysis. Creatinine on admission was 1.5 but improved overnight to 0.8 and is now stable. Appears to be resolved. No renal US necessary at this time. Renal function is improving. Continue to monitor renal function. Avoid nephrotoxic agents. Meds dosage based on GFR. 2. FEN: Hyponatremia: improved to 140, monitor. Monitor lytes. 3. Rhabdomyolysis: CK is trending down. Was transferred out of ICU on 01/08. 4. Prescription medication abuse: Multiple ER visits related to unconsciousness after abuse of narcotic or benzos. Positive for benzos on toxicology screening. Psych following. 5. Hypothyroidism: On Synthroid. Subjective Date of service: 01/08/20 Interval history: Patient was seen and examined at the bedside. She is in a pleasant mood and happy to be out of ICU. She has no new complaints today and would like to start walking. Objective - Exam Narrative Exam: General appearance: well-developed, appears stated age, obese EENT: ATNC, PERRL, mucous membranes moist Neck: Present: neck supple, trachea midline Respiratory: Clear to Ascultation, Decreased Breath Sounds (bilateral bases) Heart: regular, normal heart rate, S1S2, no murmurs Gastrointestinal: Present: normal, normoactive bowel sounds. Absent: tenderness, distended, masses, organomegaly Integumentary: no rash, warm and dry Neurologic: no focal deficit, alert and oriented x3 Musculoskeletal: Present: other (FROM all extremities) Psychiatric: cooperative, pleasant - Vital Signs Vital signs: Vital Signs - 12hr 01/08/20 01/08/20 01/08/20 03:30 04:00 04:30 Temperature 97.2 F L Pulse Rate 73 78 89 Pulse Rate [ 78 From Monitor] Respiratory 11 L 17 20 Rate Blood Pressure 109/69 109/69 109/69 Blood Pressure [Left] O2 Sat by Pulse 100 96 86 Oximetry 01/08/20 01/08/20 01/08/20 05:00 05:30 06:00 Temperature Pulse Rate 88 87 90 Pulse Rate [ From Monitor] Respiratory 19 22 18 Rate Blood Pressure 109/69 109/69 109/69 Blood Pressure [Left] O2 Sat by Pulse 96 100 96 Oximetry 01/08/20 01/08/20 01/08/20 06:30 07:00 07:30 Temperature Pulse Rate 82 88 85 Pulse Rate [ From Monitor] Respiratory 17 20 15 Rate Blood Pressure 109/69 109/69 109/69 Blood Pressure [Left] O2 Sat by Pulse 96 95 Oximetry 01/08/20 01/08/20 01/08/20 08:00 08:27 08:30 Temperature Pulse Rate 80 87 Pulse Rate [ From Monitor] Respiratory 9 L 10 L Rate Blood Pressure 109/69 109/69 Blood Pressure [Left] O2 Sat by Pulse 99 99 Oximetry 01/08/20 01/08/20 01/08/20 09:00 09:24 09:30 Temperature Pulse Rate 71 100 H Pulse Rate [ From Monitor] Respiratory 13 13 Rate Blood Pressure 109/69 109/69 Blood Pressure [Left] O2 Sat by Pulse 99 92 Oximetry 01/08/20 01/08/20 01/08/20 10:00 10:30 13:00 Temperature 98.5 F Pulse Rate 89 80 70 Pulse Rate [ From Monitor] Respiratory 19 15 16 Rate Blood Pressure 109/69 109/69 Blood Pressure 135/83 [Left] O2 Sat by Pulse 98 97 Oximetry - Lab 01/08/20 04:12 Most recent lab results ABG pH 7.325 pH Units (7.350-7.450) L 01/06/20 19:35 ABG pCO2 54.1 mm Hg 01/06/20 19:35 ABG pO2 61.9 mm Hg (80.0-90.0) L 01/06/20 19:35 ABG HCO3 27.5 mmol/L (20.0-26.0) H 01/06/20 19:35 ABG O2 Saturation 89.6 % (95.0-99.0) L 01/06/20 19:35 Calcium 8.2 mg/dL (8.4-10.2) L 01/08/20 04:12 Magnesium 2.10 mg/dL (1.7-2.3) 01/06/20 17:55 Urine Creatinine 50.6 mg/dL (0.1-20.0) H 01/07/20 09:23 Urine Sodium 29 mmol/L 01/07/20 09:23 Medications & Allergies - Medications Allergies/Adverse Reactions: Allergies No Known Allergies Allergy (Verified 11/16/14 17:20) Home Medications: Home Medications Medication Instructions Recorded Confirmed Last Taken Type Levothyroxine [Synthroid] 100 mcg PO QDAY 11/16/14 06/27/15 11/26/14 07:00 History 100 mcg Active Medications: Generic Name Dose Route Start Last Admin Trade Name Freq PRN Reason Stop Dose Admin Alprazolam 0.25 mg 01/08/20 22:00 Xanax PO Q12HR MAXIMILIANO Fluoxetine HCl 10 mg 01/09/20 10:00 Prozac PO QDAY MAXIMILIANO Heparin Sodium (Porcine) 5,000 unit 01/07/20 10:00 01/08/20 10:57 Heparin SUB-Q 5,000 unit Q12HR MAXIMILIANO Administration Lamotrigine 25 mg 01/08/20 22:00 Lamictal PO BID MAXIMILIANO Trazodone HCl 50 mg 01/08/20 22:00 Desyrel PO QHS MAXIMILIANO
[2020-01-08] MEDS ORDERED: traZODone 50 MG TAB PO SCH (22:00)
[2020-01-08] MEDS: lamoTRIgine 25 MG TAB PO SCH (22:34)
[2020-01-08] MEDS: ALPRAZolam 0.25 MG TAB PO SCH (22:35)
[2020-01-09] MEDS: ALPRAZolam 0.25 MG TAB PO SCH ×2 (00:22→09:35)
[2020-01-09 06:36] LABS: BUN/Creatinine Ratio 10; Blood Urea Nitrogen 6 mg/dL (7-17); Calcium 8.8 mg/dL (8.4-10.2); Hemolysis Index 1
[2020-01-09 06:49] VITALS: BP 121/71
--- NOTE | 2020-01-09 07:36 | Progress Note ---
Assessment and Plan 1. Acute kidney injury: Vasomotor JANNETTE in setting of rhabdomyolysis. Creatinine on admission was 1.5 but improved overnight to 0.8 and is now stable. Appears to be resolved. No renal US necessary at this time. Renal function is improving. Continue to monitor renal function. Avoid nephrotoxic agents. Meds dosage based on GFR. 2. FEN: Hyponatremia: improved to 141, monitor. Monitor lytes. 3. Rhabdomyolysis: CK is trending down. Was transferred out of ICU on 01/08. 4. Prescription medication abuse: Multiple ER visits related to unconsciousness after abuse of narcotic or benzos. Positive for benzos on toxicology screening. Psych following. 5. Hypothyroidism: On Synthroid. Subjective Date of service: 01/09/20 Interval history: Patient was seen and examined at the bedside. She is in a pleasant mood. She has no new complaints today and has started walking frequently in the halls. She states she feels much better. Objective - Exam Narrative Exam: General appearance: well-developed, appears stated age, obese EENT: ATNC, PERRL, mucous membranes moist Neck: Present: neck supple, trachea midline Respiratory: Clear to Ascultation, Decreased Breath Sounds (bilateral bases) Heart: regular, normal heart rate, S1S2, no murmurs Gastrointestinal: Present: normal, normoactive bowel sounds. Absent: tenderness, distended, masses, organomegaly Integumentary: no rash, warm and dry Neurologic: no focal deficit, alert and oriented x3 Musculoskeletal: Present: other (FROM all extremities) Psychiatric: cooperative, pleasant - Vital Signs Vital signs: Vital Signs - 12hr 01/08/20 01/08/20 01/08/20 21:55 22:04 23:56 Temperature 98.1 F 98.1 F Pulse Rate 67 69 Respiratory 18 16 Rate Blood Pressure 112/59 127/80 O2 Sat by Pulse 95 100 95 Oximetry 01/09/20 06:46 Temperature 98.4 F Pulse Rate 62 Respiratory 18 Rate Blood Pressure 121/71 O2 Sat by Pulse 96 Oximetry - Lab 01/09/20 05:36 Most recent lab results ABG pH 7.325 pH Units (7.350-7.450) L 01/06/20 19:35 ABG pCO2 54.1 mm Hg 01/06/20 19:35 ABG pO2 61.9 mm Hg (80.0-90.0) L 01/06/20 19:35 ABG HCO3 27.5 mmol/L (20.0-26.0) H 01/06/20 19:35 ABG O2 Saturation 89.6 % (95.0-99.0) L 01/06/20 19:35 Calcium 8.8 mg/dL (8.4-10.2) 01/09/20 05:36 Magnesium 2.10 mg/dL (1.7-2.3) 01/06/20 17:55 Urine Creatinine 50.6 mg/dL (0.1-20.0) H 01/07/20 09:23 Urine Sodium 29 mmol/L 01/07/20 09:23 Medications & Allergies - Medications Allergies/Adverse Reactions: Allergies No Known Allergies Allergy (Verified 11/16/14 17:20) Home Medications: Home Medications Medication Instructions Recorded Confirmed Last Taken Type ALPRAZolam [Xanax TAB] 0.25 mg PO Q12HR #60 tablet 01/09/20 Unknown Rx FLUoxetine [PROzac] 10 mg PO QDAY #30 tablet 01/09/20 Unknown Rx Levothyroxine [Synthroid] 100 mcg PO QDAY #30 01/09/20 Unknown Rx lamoTRIgine [LaMICtal] 25 mg PO BID #60 tablet 01/09/20 Unknown Rx traZODone [Desyrel] 50 mg PO QHS #30 tablet 01/09/20 Unknown Rx Active Medications: Generic Name Dose Route Start Last Admin Trade Name Samanta PRN Reason Stop Dose Admin Alprazolam 0.25 mg 01/08/20 22:00 01/09/20 00:22 Xanax PO 0.25 mg Q12HR MAXIMILIANO Administration Fluoxetine HCl 10 mg 01/09/20 10:00 Prozac PO QDAY MAXIMILIANO Heparin Sodium (Porcine) 5,000 unit 01/07/20 10:00 01/08/20 22:08 Heparin SUB-Q 5,000 unit Q12HR MAXIMILIANO Administration Lamotrigine 25 mg 01/08/20 22:00 01/08/20 22:34 Lamictal PO 25 mg BID MAXIMILIANO Administration Trazodone HCl 50 mg 01/08/20 22:00 01/08/20 22:08 Desyrel PO 50 mg QHS MAXIMILIANO Administration
[2020-01-09] MEDS: HEPARIN 5,000 UNIT/1 ML VIAL SUB-Q SCH (09:35)
[2020-01-09] MEDS ORDERED: FLUoxetine 10 MG TAB PO SCH (10:00)
--- NOTE | 2020-01-09 10:11 | Discharge Summary ---
Providers - Providers Date of Admission: 01/06/20 20:42 Date of discharge: 01/09/20 Attending physician: DANNI CHURCH 01/06/20 19:22 Consult to Physician [CONS] Urgent Comment: Dr. Rodriguez spoke with Dr. Santiago @ [id number] Consulting Provider: ALEE SANTIAGO Physician Instructions: Reason For Exam: torin kat,isak chf 01/08/20 09:25 Consult to Mental Health [CONS] Routine Reason For Exam: Drug overdose Primary care physician: [employer] INSPECTOR Hospitalization Condition: Good Hospital course: Patient 39 years old presented with acute metabolic encephalopathy after ingesting Percocet and then took for half of Xanax for anxiety. Patient symptoms resolved. Was evaluated by mental health clear. No suicidal ideations no hallucinations no delusions. Patient has history of schizoaffective disorder was not treated secondary to patient focus on kids and family. Patient now stable hemodynamically stable. Mood is upbeat fresh anxiety much better. Patient be discharged home on Paxil Lamictal and Xanax. Disposition: TO HOME OR SELFCARE - Discharge Diagnoses (1) JANNETTE (acute kidney injury) Status: Acute Comment: Secondary to vasomotor nephropathy resolved. (2) Acute hypoxemic respiratory failure Status: Resolved (3) Rhabdomyolysis Status: Acute Comment: Rhabdo has improved dramatically with IV volume repl acement and p.o. fluid intake. CPK decreased from 15,500-5000. (4) Benzodiazepine overdose Status: Acute Comment: Patient understands effects of benzodiazepines avoid overdose. Accidental educated on accidental causes of overdose. (5) Schizoaffective disorder Status: Acute Comment: Lamictal Paxil. Core Measure Documentation - Palliative Care Palliative Care/ Comfort Measures: Not Applicable - Core Measures Any of the following diagnoses?: none Exam - Constitutional Vitals: Temp Pulse Resp BP Pulse Ox 98.4 F 62 18 121/71 91 01/09/20 06:46 01/09/20 06:46 01/09/20 06:46 01/09/20 06:46 01/09/20 08:04 General appearance: Present: no acute distress, well-nourished - EENT Eyes: Present: PERRL ENT: hearing intact, clear oral mucosa - Neck Neck: Present: supple, normal ROM - Respiratory Respiratory effort: normal Respiratory: bilateral: CTA - Cardiovascular Heart Sounds: Present: S1 & S2. Absent: rub, click - Extremities Extremities: pulses symmetrical, No edema Peripheral Pulses: within normal limits - Abdominal General gastrointestinal: Present: soft, non-tender, non-distended, normal bowel sounds Female genitourinary: Present: normal - Integumentary Integumentary: Present: clear, warm, dry - Musculoskeletal Musculoskeletal: gait normal, strength equal bilaterally - Psychiatric Psychiatric: appropriate mood/affect, intact judgment & insight - Neurologic Neurologic: CNII-XII intact, moves all extremities Plan Activity: no restrictions Diet: regular Follow up with: PRIMARY CARE,MD [Primary Care Provider] - 3-5 Days Prescriptions: traZODone [Desyrel] 50 mg PO QHS #30 tablet lamoTRIgine [LaMICtal] 25 mg PO BID #60 tablet FLUoxetine [PROzac] 10 mg PO QDAY #30 tablet Levothyroxine [Synthroid] 100 mcg PO QDAY #30 ALPRAZolam [Xanax TAB] 0.25 mg PO Q12HR #60 tablet
[2020-01-09] MEDS: lamoTRIgine 25 MG TAB PO SCH (11:03)
== END 2020-01-09 11:38 | disposition home or self-care (01) | DRG 917 ==
LOC: ED 14:59 → IMCU 20:42 → 3A 01-08 13:09
PROVIDERS: ADMIT Internal Medicine; ATTEND Internal Medicine
PROC: 4A033R1 Measurement of Arterial Saturation, Peripheral, Percutaneous Approach (ICD-10-PCS; principal; 2020-01-06)
DX: T42.4X1A Poisoning by benzodiazepines, accidental (unintentional), initial encounter (principal); N17.0 Acute kidney failure with tubular necrosis; J96.01 Acute respiratory failure with hypoxia; G93.41 Metabolic encephalopathy; K21.9 Gastro-esophageal reflux disease without esophagitis; F41.9 Anxiety disorder, unspecified; M62.82 Rhabdomyolysis; J81.1 Chronic pulmonary edema; E03.9 Hypothyroidism, unspecified; F13.20 Sedative, hypnotic or anxiolytic dependence, uncomplicated; E87.1 Hypo-osmolality and hyponatremia; F25.9 Schizoaffective disorder, unspecified; Z90.49 Acquired absence of other specified parts of digestive tract; Y92.098 Other place in other non-institutional residence as the place of occurrence of the external cause
CPT/HCPCS: 36415; 70450; 71045; 80048; 80053; 80307; 80320; 81001; 82550; 82553; 82570; 82803; 83735; 83880; 83935; 84300; 84443; 84484; 84550; 93005; 93010; 93306; 94760; 96361; 96374; G0378; G0480; J1644; J7030; J7050; J7070

== ENCOUNTER 2020-01-10 17:57 | Emergency (ER) | payer MEDICAID ==
--- NOTE | 2020-01-10 19:55 | Emergency Department Report ---
Blank Doc - Documentation Documentation: 39-year-old female that presents with SZ like activity and "acting different" after taking xanax. This initial assessment/diagnostic orders/clinical plan/treatment(s) is/are subject to change based on patient's health status, clinical progression and re- assessment by fellow clinical providers in the ED. Further treatment and workup at subsequent clinical providers discretion. Patient/guardians urged not to elope from the ED as their condition may be serious if not clinically assessed and managed. Initial orders include: 1- Patient sent to MAIN ED for further evaluation and treatment 2- SZ protocol
[2020-01-10 20:54] LABS: Basophils % (Auto) 0.4 % (0.0-1.8); Hematocrit 36.4 % (30.3-42.9); Hemoglobin 11.5 gm/dl (10.1-14.3); Lymphocytes # (Auto) 1.3 K/mm3 (1.2-5.4); Lymphocytes % (Auto) 13.2 % (13.4-35.0); Mean Corpuscular HGB Conc 32 % (30-34); Mean Corpuscular Volume 78 fl (79-97); Monocytes # (Auto) 0.8 K/mm3 (0.0-0.8); Monocytes % (Auto) 8.2 % (0.0-7.3); Platelet Count 221 K/mm3 (140-440); Red Cell Distribution Width 19.7 % (13.2-15.2)
[2020-01-10 21:02] VITALS: BP 124/82
[2020-01-10 21:13] LABS: Creatine Kinase MB 2.9 ng/mL (0.0-4.0)
[2020-01-10 21:16] LABS: Alanine Aminotransferase 44 units/L (7-56); Albumin 3.9 g/dL (3.9-5); BUN/Creatinine Ratio 8; Blood Urea Nitrogen 6 mg/dL (7-17); Calcium 9.7 mg/dL (8.4-10.2); Hemolysis Index 10
[2020-01-10] MEDS ORDERED: SODIUM CHLORIDE 0.9% 1000 ML 1,000 ML IV ONE (21:18)
[2020-01-10] MEDS ORDERED: levETIRAcetam 1000 MG/NS 0.75% 1,000 MG/100 ML BAG IV ONE (21:18)
[2020-01-10 21:19] LABS: INR 1.01 (0.87-1.13); Partial Thromboplastin Time 24.8 Sec. (24.2-36.6)
[2020-01-10 21:20] LABS: Thrombin Time 15.5 Sec. (15.1-19.6)
--- NOTE | 2020-01-10 21:20 | Cat Scan Report ---
CT head/brain wo con INDICATION / CLINICAL INFORMATION: 39 years Female; Stroke symptoms. TECHNIQUE: Routine CT head without contrast. All CT scans at this location are performed using CT dos e reduction for ALARA by means of automated exposure control. COMPARISON: 01/06/2020 FINDINGS: BRAIN / INTRACRANIAL CONTENTS: No acute hemorrhage, mass effect, midline shift, hydrocephalus, or acu te, large territorial infarct. No chronic infarct or atrophy appreciated. No significant white matter abnormality. CRANIOCERVICAL JUNCTION: No significant abnormality. ORBITS: No significant abnormality of visualized orbits. SINUSES / MASTOIDS: No significant abnormality the visualized paranasal sinuses or mastoid air cells. ADDITIONAL FINDINGS: Prominent soft tissue is seen in the roof the nasopharynx, presumably related to reactive adenoidal tissue. Please clinically correlate. IMPRESSION: 1. No focal mass, hemorrhage, hydrocephalus, or acute, large territorial infarct. No change from 4 da ys ago. Signer Name: Carlos Sol MD, III Signed: 01/10/2020 9:15 PM Workstation Name: [id number]
--- NOTE | 2020-01-10 22:32 | Emergency Department Report ---
HPI - General Chief Complaint: Seizure Time Seen by Provider: 01/10/20 19:53 - HPI HPI: 39-year-old -[place] female presents to the emergency department with complaint of a single witnessed seizure just prior to arrival. The patient does not have any seizure history. However, the patient was just discharged from this hospital yesterday after spending 3 or 4 days here secondary to renal insufficiency, rhabdomyolysis and some unresponsive episode secondary to polysubstance abuse. The patient has previously been abusing hydrocodone and Xanax. She does have a history of GERD, anxiety, hypothyroidism. Since being in the emergency department today the patient has been awake, alert, oriented and just feels fatigued. The patient was discharged from this hospital with prescriptions for Prozac, Lamictal and Xanax. The Xanax was apparently written in a way to assist with withdrawal. Patient did have one of the Xanax this morning but denies taking any narcotic pain medications. The prescription medications are being monitored and distributed by her mother and grandmother. ED Past Medical Hx - Past Medical History Previous Medical History?: Yes Hx Hypertension: No Hx Congestive Heart Failure: No Hx Diabetes: No Hx GERD: Yes Hx Psychiatric Treatment: Yes (anxiety) Hx Asthma: No Hx COPD: No Additional medical history: HYPOTHYROID, Abuse of hydrocodone - Surgical History Past Surgical History?: Yes Hx Cholecystectomy: Yes Additional Surgical History: 2002 2004 - Social History Smoking Status: Current Every Day Smoker - Medications Home Medications: Home Medications Medication Instructions Recorded Confirmed Last Taken Type ALPRAZolam [Xanax TAB] 0.25 mg PO Q12HR #60 tablet 01/09/20 Unknown Rx FLUoxetine [PROzac] 10 mg PO QDAY #30 tablet 01/09/20 Unknown Rx Levothyroxine [Synthroid] 100 mcg PO QDAY #30 01/09/20 Unknown Rx lamoTRIgine [LaMICtal] 25 mg PO BID #60 tablet 01/09/20 Unknown Rx traZODone [Desyrel] 50 mg PO QHS #30 tablet 01/09/20 Unknown Rx ED Review of Systems ROS: Stated complaint: SEIZURE Other details as noted in HPI Comment: All other systems reviewed and negative Constitutional: denies: chills, fever Eyes: denies: eye pain, vision change ENT: denies: ear pain, throat pain Respiratory: denies: cough, shortness of breath Cardiovascular: denies: chest pain, palpitations Gastrointestinal: denies: abdominal pain, vomiting Genitourinary: denies: dysuria, discharge Musculoskeletal: denies: back pain, arthralgia Skin: denies: rash, lesions Neurological: other (Seizure). denies: headache Physical Exam - Physical Exam Vital Signs: Vital Signs 01/10/20 01/10/20 01/10/20 19:32 20:48 21:00 Temperature 98.4 F Pulse Rate 88 85 Respiratory 16 16 15 Rate Blood Pressure 134/107 124/82 Blood Pressure [Left] O2 Sat by Pulse 92 Oximetry 01/10/20 01/10/20 01/10/20 21:01 21:15 21:31 Temperature 98.2 F Pulse Rate 77 88 80 Respiratory 16 15 17 Rate Blood Pressure 124/82 124/82 Blood Pressure 124/82 [Left] O2 Sat by Pulse 90 94 96 Oximetry 01/10/20 01/10/20 21:45 22:01 Temperature Pulse Rate 86 79 Respiratory 17 22 Rate Blood Pressure 101/53 124/82 Blood Pressure [Left] O2 Sat by Pulse 98 92 Oximetry Physical Exam: GENERAL: The patient is well-developed well-nourished. HENT: Normocephalic. Atraumatic. Patient has moist mucous membranes. EYES: Extraocular motions are intact. NECK: Supple. Trachea is midline. CHEST/LUNGS: Clear to auscultation. There is no respiratory distress noted. HEART/CARDIOVASCULAR: Regular. There is no tachycardia. There is no murmur. ABDOMEN: Abdomen is soft, nontender. Patient has normal bowel sounds. There is no abdominal distention. SKIN: Skin is warm and dry. NEURO: The patient is awake, alert, and oriented. The patient is cooperative. The patient has no focal neurologic deficits. Normal speech. Cranial nerves II through XII grossly intact. No facial asymmetry. MUSCULOSKELETAL: There is no tenderness or deformity. There is no limitation range of motion. There is no evidence of acute injury. ED Course Vital Signs 01/10/20 01/10/20 01/10/20 19:32 20:48 21:00 Temperature 98.4 F Pulse Rate 88 85 Respiratory 16 16 15 Rate Blood Pressure 134/107 124/82 Blood Pressure [Left] O2 Sat by Pulse 92 Oximetry 01/10/20 01/10/2020 21:01 21:15 21:31 Temperature 98.2 F Pulse Rate 77 88 80 Respiratory 16 15 17 Rate Blood Pressure 124/82 124/82 Blood Pressure 124/82 [Left] O2 Sat by Pulse 90 94 96 Oximetry 01/10/20 01/10/20 21:45 22:01 Temperature Pulse Rate 86 79 Respiratory 17 22 Rate Blood Pressure 101/53 124/82 Blood Pressure [Left] O2 Sat by Pulse 98 92 Oximetry ED Medical Decision Making - Lab Data Result diagrams: 01/10/20 20:25 01/10/20 20:25 - EKG Data -: EKG Interpreted by Me EKG shows normal: sinus rhythm, axis, intervals, QRS complexes, ST-T waves Rate: normal - EKG Data When compared to previous EKG there are: previous EKG unavailable Interpretation: normal EKG - Radiology Data Radiology results: report reviewed CT head/brain wo con INDICATION / CLINICAL INFORMATION: 39 years Female; Stroke symptoms. TECHNIQUE: Routine CT head without contrast. All CT scans at this location are performed using CT dose reduction for ALARA by means of automated exposure control. COMPARISON: 01/06/2020 FINDINGS: BRAIN / INTRACRANIAL CONTENTS: No acute hemorrhage, mass effect, midline shift, hydrocephalus, or acute, large territorial infarct. No chronic infarct or atrophy appreciated. No significant white matter abnormality. CRANIOCERVICAL JUNCTION: No significant abnormality. ORBITS: No significant abnormality of visualized orbits. SINUSES / MASTOIDS: No significant abnormality the visualized paranasal sinuses or mastoid air cells. ADDITIONAL FINDINGS: Prominent soft tissue is seen in the roof the nasopharynx, presumably related to reactive adenoidal tissue. Please clinically correlate. IMPRESSION: 1. No focal mass, hemorrhage, hydrocephalus, or acute, large territorial infarct. No change from 4 days ago. - Medical Decision Making This patient presents to the emergency department after having a witnessed seizure just prior to arrival which is a new onset for her. However the patient was recently here and discharged yesterday after being here for opiate and benzodiazepine abuse, rhabdomyolysis, dehydration. At the time of my examination the patient is awake, alert, oriented without any focal, motor or sensory deficits. A CT scan of the head without contrast was done that does not show any acute bleed, shift, mass, ischemia, or any other acute process. Patient's labs are mostly unremarkable. She does have a CK of about 1800 but this is greatly decreased from her previous visit. She was given some gentle IV fluid resuscitation. She was loaded with a gram of Keppra. The patient was reevaluated multiple times over about 4-1/2 hours without any return of any seizure-like activity. While the patient was placed on Xanax by the [facility] hiatrist who was consulted and patient, the 0.25 mg dosing is probably greatly decreased from what she was doing when she was abusing the benzodiazepines. This may be the reason for the patient's seizure-like activity. She has good follow-up with primary care, outpatient psychiatry, and was given a referral for neurology. She will return to the emergency department with any further seizure-like activity, or with any acute distress. - Differential Diagnosis Benzodiazepine withdrawal, electrolyte abnormalities, dysrhythmia Critical Care Time: No Critical care attestation.: If time is entered above; I have spent that time in minutes in the direct care of this critically ill patient, excluding procedure time. ED Disposition Clinical Impression: Seizure Disposition: DC-01 TO HOME OR SELFCARE Is pt being admited?: No Condition: Stable Instructions: New-Onset Seizure in Adults (ED) Additional Instructions: Please follow-up with your primary care physician and any other referrals given to you upon discharge yesterday. I am giving you a referral for a local neurologist, Dr. Krause, to follow-up regarding your seizure. However, please return to the closest emergency department immediately with any further seizure- like activity, or with any acute distress. Referrals: NATALIE MINOR MD [Primary Care Provider] - 2-3 Days SOBIA KRAUSE MD [Referring] - 2-3 Days Time of Disposition: 22:34
== END 2020-01-10 22:47 | disposition home or self-care (01) ==
LOC: ED 17:57
DX: R56.9 Unspecified convulsions (principal); K21.9 Gastro-esophageal reflux disease without esophagitis; F41.9 Anxiety disorder, unspecified; F17.200 Nicotine dependence, unspecified, uncomplicated; Z90.49 Acquired absence of other specified parts of digestive tract; Z98.890 Other specified postprocedural states
CPT/HCPCS: 36415; 70450; 80053; 82550; 82553; 84484; 85025; 85610; 85670; 85730; 93005; 93010; 96374; 99285; J1953; J7030; 80320; G0480